=== PATIENT | female | born 2000 | race Hispanic/Latino ===

== ENCOUNTER 2021-08-24 23:43 | Emergency (ER) | payer OTHER ==
[~2021-08-24] VITALS: Ht 157.5 cm; Wt 93.4 kg
[2021-08-25] MEDS ORDERED: AMOX/CLAV 875/125MG TAB PO ONE
[2021-08-25] MEDS ORDERED: KETOROLAC 60 MG VIAL (30MG/ML) IM ONE
[2021-08-25] MEDS ORDERED: AMOX-426 PO (00:04)
[2021-08-25 00:44] VITALS: BP 138/88
== END 2021-08-25 00:49 | disposition home or self-care (01) ==
LOC: EDH 23:43
DX: S50.11XA Contusion of right forearm, initial encounter (principal); W54.0XXA Bitten by dog, initial encounter; Y93.89 Activity, other specified; Y92.89 Other specified places as the place of occurrence of the external cause; Y99.8 Other external cause status
CPT/HCPCS: 96372; 99283; J1885

== ENCOUNTER 2022-11-29 06:55 | Emergency (ER) | payer BC, OTHER ==
[~2022-11-29] VITALS: Ht 157.5 cm; Wt 97.1 kg
[~2022-11-29 06:55] MED LIST: AMOX-426 PO
[2022-11-29 07:27] LABS: BASOPHILS % (AUTO) 0.2 % (0.0-5.0); EOSINOPHILS % (AUTO) 0.1 % (0.0-8.0); HEMATOCRIT 45.6 % (36-48); LYMPHOCYTES % (AUTO) 19.9 % (21.0-51.0); MEAN CORPUSCULAR HEMOGLOBIN 26.1 pg (27.0-33.0); MEAN CORPUSCULAR HGB CONC 33.3 g/dL (32.0-36.0); MEAN CORPUSCULAR VOLUME 78.4 fL (80-100); MONOCYTES % (AUTO) 5.5 % (3.0-13.0); NEUTROPHILS % (AUTO) 73.8 % (40.0-77.0); PLATELET COUNT (AUTO) 262 K/uL (130-400); RED BLOOD CELL COUNT(AUTO) 5.82 MIL/uL (4.00-5.50); RED CELL DISTRIBUTION WIDTH 13.4 % (11.0-15.5); WHITE BLOOD COUNT (AUTO) 10.2 K/uL (4.8-10.8)
[2022-11-29] MEDS ORDERED: LOPERAMIDE HCL 2 MG CAP PO ONE (07:30)
[2022-11-29] MEDS ORDERED: LACTATED RINGERS 1000ML 1,000 ML IV ONE (07:30)
[2022-11-29] MEDS ORDERED: ONDANSETRON 4MG INJ IVP ONE (07:30)
[2022-11-29 07:47] LABS: ALBUMIN 3.6 g/dL (3.5-5.0); CREATININE 1.1 mg/dL (0.5-1.5); POTASSIUM 3.5 mmol/L (3.5-5.1); TOTAL PROTEIN, SERUM 7.3 g/dL (6.0-8.3)
[2022-11-29] MEDS ORDERED: ONDA4TAB10 PO (07:59)
[2022-11-29] MEDS ORDERED: LOPE2CAP PO (07:59)
[2022-11-29 08:24] VITALS: BP 122/68
== END 2022-11-29 08:25 | disposition home or self-care (01) ==
LOC: EDH 06:55
DX: K52.9 Noninfective gastroenteritis and colitis, unspecified (principal)
CPT/HCPCS: 99284; 96374; 96361; 80053; 83690; 85025; 87040 ×2; 83605; 36415; J2405

== ENCOUNTER 2024-02-10 23:44 | Emergency (ER) | payer BC, OTHER ==
[~2024-02-10] VITALS: Ht 157.5 cm; Wt 95.3 kg
[~2024-02-10 23:44] MED LIST changes: -AMOX-426 PO; +LEVO750T39 PO
[2024-02-11] MEDS: ONDANSETRON 4MG INJ IVP ONE (00:41)
[2024-02-11] MEDS: 0.9%NACL 1000ML 1,000 ML IV ONE (00:41)
[2024-02-11] MEDS: MORPHINE 2 MG SYG IVP ONE (00:41)
[2024-02-11 00:47] LABS: APPEARANCE,URINE CLEAR (CLEAR); BILIRUBIN,URINE NEGATIVE (NEGATIVE); COLOR,URINE YELLOW (YELLOW); GLUCOSE, URINE (UA) NEGATIVE (NEGATIVE); KETONES,URINE NEGATIVE (NEGATIVE); LEUKOCYTE ESTERASE ,URINE NEGATIVE Leu/uL (NEGATIVE); NITRATE,URINE NEGATIVE (NEGATIVE); OCCULT BLOOD,URINE SMALL (NEGATIVE); PH,URINE 5.5 (5.0-8.0); PROTEIN,URINE 10 mg/dL (NEGATIVE)
[2024-02-11 00:49] LABS: HCG,QUALITATIVE URINE NEGATIVE (NEGATIVE)
[2024-02-11 00:50] LABS: ADD UA MICROSCOPIC YES
[2024-02-11 00:52] LABS: MUCUS,URINE FEW LPF (None Seen); SQUAMOUS EPITHELIAL CELL,UR FEW /HPF (0-2)
[2024-02-11 00:56] LABS: BASOPHILS # (AUTO) 0.06 K/uL (0.00-0.20); BASOPHILS % (AUTO) 0.4 % (0.0-5.0); EOSINOPHILS # (AUTO) 0.44 K/uL (0.00-0.70); EOSINOPHILS % (AUTO) 2.8 % (0.0-8.0); HEMATOCRIT 47.4 % (36-48); IMMATURE GRANULOCYTE ABSOLUTE 0.07 K/uL (0-1); LYMPHOCYTES # (AUTO) 5.2 K/uL (1.0-4.8); LYMPHOCYTES % (AUTO) 32.6 % (21.0-51.0); MEAN CORPUSCULAR HEMOGLOBIN 26.6 pg (27.0-33.0); MEAN CORPUSCULAR HGB CONC 33.8 g/dL (32.0-36.0); MEAN CORPUSCULAR VOLUME 78.9 fL (79-99); MONOCYTES # (AUTO) 0.7 K/uL (0.1-1.0); MONOCYTES % (AUTO) 4.5 % (3.0-13.0); NEUTROPHILS # (AUTO) 9.4 K/uL (1.8-7.7); NEUTROPHILS % (AUTO) 59.3 % (40.0-77.0); PLATELET COUNT (AUTO) 343 K/uL (130-400); RED BLOOD CELL COUNT(AUTO) 6.01 MIL/uL (4.00-5.50); RED CELL DISTRIBUTION WIDTH 13.4 % (11.0-15.5); WHITE BLOOD COUNT (AUTO) 15.9 K/uL (4.8-10.8)
[2024-02-11 01:09] LABS: CREATININE 0.9 mg/dL (0.5-1.0); POTASSIUM 3.8 mmol/L (3.5-5.1)
[2024-02-11 01:13] LABS: ALBUMIN 3.9 g/dL (3.5-5.0); BILIRUBIN,TOTAL 0.3 mg/dL (0.2-1.0); TOTAL PROTEIN, SERUM 7.8 g/dL (6.0-8.3)
[2024-02-11] MEDS ORDERED: IOHEXOL 350 MG/ML 100ML INFUS..BTL IV ONE (01:53)
[2024-02-11 02:50] VITALS: BP 122/88; PULSE 87; RESP 20; O2SAT 99
[2024-02-11] MEDS: ZOSYN 3.375GM +NS 50ML IVPB ONE (02:54)
[2024-02-11] MEDS ORDERED: IBUP-2077 PO (02:57)
== END 2024-02-11 03:05 | disposition home or self-care (01) ==
LOC: EDH 23:44
DX: R10.2 Pelvic and perineal pain (principal); Z98.890 Other specified postprocedural states
CPT/HCPCS: 99285; 80053; 85025; 81001; 81025; 36415; 74177; 96374; 96361; 96375; J2270; J7030; J2405; J2543; Q9967

== ENCOUNTER 2024-04-19 18:10 | Emergency (ER) | payer SELFPAY ==
[~2024-04-19] VITALS: Ht 157.5 cm; Wt 99.3 kg
[~2024-04-19 18:10] MED LIST changes: +IBUP-2077 PO
[2024-04-19] MEDS ORDERED: CIPR7.5D7 AD (18:25)
[2024-04-19] MEDS ORDERED: AMOX1TAB16 PO (18:25)
[2024-04-19] MEDS: CIPROFLOXACIN HCL 0.2%/HYDROCORT 1% 10 ML OTIC SUSP OTIC ONE (19:25)
[2024-04-19] MEDS: dexaMETHasone SOD PHOSPHATE 4 MG/ML 1ML VIAL IM ONE (19:25)
[2024-04-19] MEDS: cefTRIAXone 1G VIAL IM ONE (19:25)
[2024-04-19 19:37] VITALS: BP 150/90; PULSE 80; RESP 16; TEMP 98.6; O2SAT 99
== END 2024-04-19 19:47 | disposition home or self-care (01) ==
LOC: EDH 18:10
DX: H60.91 Unspecified otitis externa, right ear (principal); H66.91 Otitis media, unspecified, right ear; Z79.899 Other long term (current) drug therapy
CPT/HCPCS: 99284; 96372 ×2; J1100; J0696